=== PATIENT | female | born 1980 | race Caucasian/White ===

== ENCOUNTER → 2017-10-12 | Outpatient (CLI) | payer BC, OTHER | LOC: SLEEPLAB 13:46 | DX: G47.33 Obstructive sleep apnea (adult) (pediatric) (principal); K21.9 Gastro-esophageal reflux disease without esophagitis; E66.9 Obesity, unspecified ==

== ENCOUNTER 2017-11-29 05:15 | Day surgery (SDC) | payer BC, OTHER ==
[~2017-11-29] VITALS: Ht 167.6 cm; Wt 108.9 kg
--- NOTE | ~2017-11-29 | O ---
[facility] [place] [address] OPERATIVE REPORT Name: RENETTA FERRELL Room #: [facility] M.R.#: [id number] Admission: 11/29/17 Attend Phys: Amauri Frye MD, F Discharge: Date of : 76 Report #: [id number] THIS REPORT FOR: //name// CC: [facility] physician/PCP Matthew Frye DATE OF SERVICE: 11/29/2017 SURGEON: Amauri Frye MD CHANNEL SPECIALIST: Albert Hester MD POSTOPERATIVE DIAGNOSES: 1. Morbid obesity. 2. Gastroesophageal reflux disease. 3. Arthritis. POSTOPERATIVE DIAGNOSES: 1. Morbid obesity. 2. Gastroesophageal reflux disease. 3. Arthritis. PROCEDURE: Laparoscopic sleeve gastrectomy with EGD. ANESTHESIA: General endotracheal anesthesia and local anesthetic. ESTIMATED BLOOD LOSS: 5 mL SPECIMEN: Lateral stomach. COMPLICATIONS: None appreciated. INDICATIONS FOR PROCEDURE: This is a 37-year-old female patient who stands 5 feet 6 inches, weighing 242 pounds with a BMI of 39.2 at her last office visit. She has had difficulty with her weight since early adulthood. She has tried numerous weight loss programs and plans, including specialized diets, exercises, and medications. The most weight she has lost is 20 pounds with any single modality. Any amount of weight she has lost, she has quickly regained plus additional weight after stopping the modality. She has seen Dr. Matthew Cantor for quite some time with no significant weight reduction. She has been cleared from a multidisciplinary standpoint and presents now for bariatric surgery (laparoscopic sleeve gastrectomy with EGD). OPERATIVE FINDINGS: On EGD, the patient's esophagus was normal, down at the GE junction and Z-line measured at 38 cm from the teeth. There was no evidence for hiatal hernia in an antegrade fashion or on retroflexion of the scope. The [address] [address] OPERATIVE REPORT Name: RENETTA FERRELL Room #: 150-1 [facility]..#: [id number] Admission: 11/29/17 Attend Phys: Amauri Frye MD, F Discharge: Date of : 76 Report #: [id number] stomach and duodenum to the third portion were normal without polyps, diverticula, masses, or ulcers. Laparoscopically, the patient's stomach was enlarged. The liver was relatively normal in appearance with mild fatty changes. The gastric sleeve staple line was located 4 cm lateral/proximal to the pylorus, 3 cm lateral to the incisura, and 1 cm lateral to the GE junction. There was no evidence for staple line leak after applying Tisseel to the staple line (carbon dioxide was immediately insufflated in to the gastric sleeve with no formation of air bubbles within the Tisseel). Endoluminally, the contour of the sleeve was smooth and hemostatic. No other significant intra-abdominal pathology was seen. At the conclusion of the operation, the sponge, needle, and instrument counts were correct. The excised stomach held 1250 mL of fluid. DESCRIPTION OF PROCEDURE IN DETAIL: After the benefits and risks of the procedure were explained to the patient which include but are not limited to risks of bleeding, infection, postoperative pain, postoperative expectations and risks of DVT and pulmonary embolus, informed consent was obtained. The patient was identified in the preoperative holding area. The patient was given IV antibiotics as documented in the chart in line with SCIP protocol. The patient was then taken to the operating room and was placed in the supine position. The patient was given IV sedation and was intubated without incident. SCDs were placed on the patient's bilateral lower extremities prior to induction of anesthesia. The patient had been placed in the modified low lying dorsal lithotomy position in stirrups on the beanbag. The beanbag and the patient were taped to the bed to secure the patient. A time-out was then performed to correctly identify the patient and procedure. An orogastric tube was placed by anesthesia. A bite block was placed and the fiberoptic EGD scope was passed into the patient's oropharynx, down the esophagus, into the stomach, and into the third portion of the duodenum. Findings are as noted above. The scope was slowly withdrawn into the antrum and the scope was retroflexed. The hiatus was visualized. The scope was then straightened and the end of the gastroscope was placed at the pylorus. The stomach was decompressed with the scope. The patient's abdomen was then prepped and draped in the standard sterile fashion with surgical prep. Local anesthetic was infiltrated into the skin and subcutaneous tissue in the left supraumbilical area where a sharp #15-blade scalpel was used to make a 5-mm incision. The 5-mm Visiport was placed intraperitoneally with the 5-mm 0-degree angled laparoscope. Pneumoperitoneum was then achieved with insufflation of carbon dioxide to 15 mmHg. A 5-mm 30-degree angled laparoscope was then inserted. The 15-mm port was placed in the right supraumbilical area after local anesthetic was infiltrated into the skin and subcutaneous tissue and an appropriately sized incision was made. Two additional 5 mm ports were placed in the left abdomen after local anesthetic was [address] [address] OPERATIVE REPORT Name: RENETTA FERRELL Room #: 150-1 [facility]#: [id number] Admission: 11/29/17 Attend Phys: Amauri Frye MD, F Discharge: Date of : 76 Report #: [id number] infiltrated and incisions were made. All ports were placed under direct visualization. The patient was then placed in reverse Trendelenburg position. Local anesthetic was infiltrated into the skin and subcutaneous tissue in the subxiphoid area and a 5-mm incision was made through which a 5-mm obturator was passed into the abdominal cavity through the fascia to create a passageway for the Travis liver retractor. The retractor was placed to retract the liver anteriorly. The retractor was held in place with the Iron Welt Stitcher apparatus. All abdominal adhesions were then taken down with blunt dissection, sharp dissection and judicious use of the ultrasonic dissector. The gastrosplenic ligament and short gastric vessels were then divided using the ultrasonic dissector with appropriate traction. Bleeding points were made hemostatic with the ultrasonic dissector. Dissection was carried proximally up to the left joyce of the diaphragm. The distal end point of dissection was then measured at 4 cm proximal to the pylorus. The short gastric vessels and gastrocolic ligaments were dissected to that level. The stomach was then rotated medially to visualize any posterior attachments/adhesions to the stomach. The adhesions were dissected with a combination of sharp dissection and use of the ultrasonic dissector. The endoscope was then slightly withdrawn to place it along the lesser curvature of the stomach. Suction was applied to the orogastric tube which was then removed, leaving the endoscope in place as a 34-Wolof bougie. The gastric sleeve was then created. Two black loads of the powered 65-mm endoscopic EB stapler buttressed with Jannie-Strips were used to staple and divide the stomach 4 cm proximal to the pylorus, moving proximally. Additional green loads buttressed with Jannie-strips were used to staple off the remainder of the stomach using the endoscope as the bougie. Care was taken to ensure that greater than 3 cm of space was present between the incisura and the staple line. The stomach was fully transected and placed in the right upper quadrant of the abdomen for later removal. Tisseel was applied to the entire length of the staple line with the Innovari aerosolizer to fully ensure hemostasis. A leak test was performed next. The sleeve was insufflated with the endoscope which was slowly withdrawn. No air bubbles were seen forming in the Tisseel laparoscopically. Endoluminally, no bleeding was seen. The stomach was fully decompressed and the scope was slowly withdrawn. The Travis liver retractor was then loosened from the Iron Welt Stitcher apparatus and it was removed without difficulty. The stomach was then removed from the patient's body through the 15-mm port under direct visualization. A small amount stretching of the fascia was required to create an opening large enough for removal of the stomach. After its removal, the 15-mm port site fascial opening was closed with an 0-PDS suture using the Anthony-Gregg laparoscopic fascial closure device. All ports were removed after the abdominal cavity was desufflated. The fascial suture was [address] [address] OPERATIVE REPORT Name: RENETTA FERRELL Room #: 150-1 [facility]..#: [id number] Admission: 11/29/17 Attend Phys: Amauri Frye MD, F Discharge: Date of : 76 Report #: [id number] tied. Interrupted subcuticular 4-0 Monocryl sutures and Dermabond were used to close all skin incisions. The patient tolerated the procedure well. The patient was awakened, extubated and taken to the recovery room in stable condition with no apparent intraoperative complications. <ELECTRONICALLY SIGNED> By: Amauri Frye MD, FACS 11/29/17 1241 [id number] [id number] Amauri Frye MD, FACS /nt
--- NOTE | ~2017-11-29 | S ---
[facility] [place] [address] SURGICAL PATH RPT PROCEDURE Name: LAQUITA FERRELL Room #: [facility]P [facility] [place] M.R.#: [id number] Admission: 11/29/17 Date of : 76 Discharge: 11/30/17 Report #: [id number] Path Case #: [id number] PATHOLOGY REPORT COLLECTION DATE: 11/29/2017 RECEIVED DATE: 11/29/2017 SUBMITTING PHYS: Dr. Amauri Frye OTHER PHYS: Dr. Albert Hester ADDENDUM REPORT (Order Date: 12/03/2017 09:50) ADDENDUM COMMENT: No evidence of Helicobacter pylori is seen in the specimen with the Helicobacter pylori immunoperoxidase stain. The final diagnosis in this case has not been changed otherwise. (SKM:dari; 12/03/2017) Professional services performed under supervision of [facility] Contribution Solicitor at [address] [place] [address]. Technical services performed by [facility] under supervision of a [facility] Contribution Solicitor at [address] [place] [address], [facility] [address] [address]. ELECTRONICALLY SIGNED BY: Shen Kay M.D. DATE/TIME:12/03/2017 10:46 SPECIMEN(S) RECEIVED: A.Gastric sleeve * * * * * * * * * * * * FINAL DIAGNOSIS: Stomach, "gastric sleeve", removal: - Portion of stomach with no significant histopathologic diagnosis. (KMD:sue; 11/30/2017) PATHOLOGIST: Shen Kay M.D. REPORT ELECTRONICALLY SIGNED BY: Shen Kay M.D. DATE/TIME: 11/30/2017 15:47 * * * * * * * * * * * * GROSS PATHOLOGY: Received in formalin labeled "Laquita Ferrell, gastric sleeve" and consists of a crescent-shaped and stapled portion of stomach measuring 23.0 x 5.5 x 4.2 cm. The serosa is glistening and pink. Sectioning reveals no mucosal lesions. Represent sections are submitted as A1. (JOHN; 11/29/2017) [address] [place] [address] SURGICAL PATH RPT PROCEDURE Name: LAQUITA FERRELL Room #: [facility] M..#: [id number] Admission: 11/29/17 Date of : 76 Discharge: 11/30/17 Report #: [id number] Path Case #: [id number] CLINICAL HISTORY: Morbid obesity INITIAL CPT CODE(S): A; 69498, 67201 Professional services performed by [facility] at [address] [place], [place] [address] Technical services performed by [facility] at [address] [place] [address], [place] [address]. [facility] [address] [place] [address] PHONE: [phone] DIRECTOR: Kash Norman M.D. * * * END OF REPORT * * *
[~2017-11-29 05:15] MED LIST: ADIPEX-P37.5 M1 PO; CETIRIZINE HCL5 MG PO; MULTI VITAMIN1 EACH PO; SINGULAIR 10 MG10 M1 PO; TRI-ESTARYLLA1 EACH PO; VYVANSE70 MG PO
[2017-11-29 06:58] VITALS: BP 125/69
[2017-11-29 15:15] VITALS: BP 133/82
[2017-11-29 20:00] VITALS: BP 135/67
[2017-11-30 00:26] VITALS: BP 112/55
[2017-11-30 03:50] LABS: BASOPHILS 0.3 % (0.0-2.0); HEMATOCRIT 33.8 % (37.0-47.0); HEMOGLOBIN 11.7 gm/dL (12.0-15.0); LYMPHOCYTES 15.8 % (24.0-44.0); MCH 31.3 pg (26.0-34.0); MCHC 34.5 g/dL (28.0-37.0); MCV 90.7 fL (80.0-100.0); MONOCYTES 8.7 % (1.0-8.0); PLATELET COUNT 215 thou/uL (150-400); POLYS 75.2 % (36.0-66.0); RBC 3.73 mil/uL (4.20-5.00); RDW 12.8 % (10.5-14.5)
[2017-11-30 04:00] VITALS: BP 107/49
[2017-11-30 04:02] LABS: CALCIUM 8.2 mg/dL (8.5-10.1); CREATININE 0.7 mg/dL (0.6-1.0); POTASSIUM 4.7 mmol/L (3.5-5.1)
[2017-11-30 08:21] VITALS: BP 127/49
[2017-11-30] MEDS ORDERED: HYDROCODONE-ACE15 ML PO ×2 (08:34→09:52)
[2017-11-30] MEDS ORDERED: ZOFRAN ODT4 MG PO (08:34)
[2017-11-30 12:24] VITALS: BP 127/49
== END 2017-11-30 12:36 | disposition home or self-care (01) ==
LOC: OR 05:15 → TBA 05:15 → OR 08:21 → 4N 13:49 → ENTRNSPT 11-30 12:29 → EDTRNSPTSTS 11-30 12:31 → OR 11-30 12:36
PROVIDERS: Surgery
DX: E66.01 Morbid (severe) obesity due to excess calories (principal); K21.9 Gastro-esophageal reflux disease without esophagitis; M19.90 Unspecified osteoarthritis, unspecified site
CPT/HCPCS: 50010; 50101; 50222; 50249; 50386; 50555; 50739; 50740; 50962; 51437; 52182; 52265; 53307; 53311; 54022; 54118; 56462; 56525; 56526; 57092; 62110; 62900; 70005